=== PATIENT | female | born 1970 | race Caucasian/White ===

== ENCOUNTER 2020-11-07 11:30 | Inpatient (IN) | payer OTHER ==
[~2020-11-07] VITALS: Ht 154.9 cm; Wt 75.7 kg
--- NOTE | 2020-11-07 12:10 | NUR ---
PT BIB FAMILY MEMBER VIA POV. PER PT AND FAMILY MEMBER SHE HAS BEEN HAVING FEVERS AND COUGHS. PT WITH HISTORY OF CML. PT WAS RECENTLY ADMITTED AND DISCHARGED FROM [facility] D[facility]T [facility] PER FAMILY. PT RESTING IN [facility], MONITORING IN PLACE, NADN AT THIS TIME, WCTM. PT ROOM AIR SAT 76%, PT SATTING 94% 4L NC. PER PT SHE IS NOT ON OXYGEN AT BASELINE.
[2020-11-07] MEDS ORDERED: SODIUM CHLORIDE FLUSH 10ML SYR IVF ONE (13:00)
[2020-11-07] MEDS ORDERED: ACETAMINOPHEN 325 MG TABLET PO ONE (13:00)
[2020-11-07] MEDS ORDERED: ACETAMINOPHEN 500 MG TABLET ONE (13:05)
--- NOTE | 2020-11-07 13:22 | NUR ---
ASSUMED CARE OF PATIENT. REPORT GIVEN FROM TANISHA OCHOA. BOTH BLOOD CULTURES DRAWN. PT HAS BEEN UPDATED BY DR LEE.
[2020-11-07] MEDS ORDERED: OXYC20TA42 PO (13:36)
[2020-11-07] MEDS ORDERED: GABAPENTIN PO (13:37)
[2020-11-07 13:51] LABS: MEAN CORPUSCULAR HEMOGLOBIN 29.1 pg (27.0-34.8); MEAN CORPUSCULAR HGB CONC 33.6 g/dL (32.4-35.8); MEAN PLATELET VOLUME 7.8 fL (7.4-10.4); PLATELET COUNT 105 x10^3/uL (130-400); RED BLOOD COUNT 3.25 x10^6/uL (3.82-5.3); RED CELL DISTRIBUTION WIDTH 16.8 % (9.6-15.2)
[2020-11-07] MEDS ORDERED: PROC10TA78 PO (13:51)
[2020-11-07] MEDS ORDERED: ONDA4TAB7 PO (13:51)
[2020-11-07] MEDS ORDERED: OMEP40CA8 PO (13:52)
[2020-11-07] MEDS ORDERED: OXYCODONE PO (13:52)
[2020-11-07] MEDS ORDERED: TRAZ50TA66 PO (13:53)
[2020-11-07] MEDS ORDERED: LOSA25TA2 PO (13:53)
[2020-11-07] MEDS ORDERED: TIZA4TAB2 PO (13:53)
[2020-11-07] MEDS ORDERED: PONATINIB PO (13:54)
--- NOTE | 2020-11-07 13:55 | NUR ---
PT RESTING IN ROOM. VS STABLE. DELIVERY MANAGER ON. NSR NOTED. CALL LIGHT IN PLACE. WILL CONTINUE TO MONITOR.
[2020-11-07 13:59] LABS: ALBUMIN 2.4 g/dL (3.4-5.0); ANION GAP 11 mmol/L (5-15); CALCIUM 7.7 mg/dL (8.5-10.1); CHLORIDE 111 mmol/L (98-107)
[2020-11-07] MEDS ORDERED: SODIUM CHLORIDE 0.9% 1,000ML IVBOLUS ONE (14:00)
[2020-11-07 14:04] LABS: RAPID INFLUENZA A Negative (Negative); RAPID INFLUENZA B Negative (Negative)
[2020-11-07 14:04] LABS: ALANINE AMINOTRANSFERASE 15 U/L (12-78); ALKALINE PHOSPHATASE 93 U/L (45-117); BILIRUBIN,TOTAL 0.7 mg/dL (0.2-1.0); CREATININE 1.31 mg/dL (0.55-1.02); TOTAL PROTEIN 6.4 g/dL (6.4-8.2)
[2020-11-07 14:07] LABS: TROPONIN I 0.257 ng/mL (0.000-0.045)
[2020-11-07] MEDS ORDERED: ASPIRIN 81 MG TABLET CHEW ONE (14:18)
--- NOTE | 2020-11-07 14:24 | NUR ---
PHARMACY SLIP SENT FOR ABX
[2020-11-07] MEDS ORDERED: ASPIRIN 81 MG TABLET CHEW PO ONE (14:30)
[2020-11-07] MEDS ORDERED: CEFEPIME 1 GM in DEXTROSE 5% 50 ML IVPB ONE (14:30)
[2020-11-07] MEDS ORDERED: VANCOMYCIN PER PHARMACY MC ONE (14:30)
[2020-11-07] MEDS ORDERED: KETOROLAC 30 MG/1 ML IVPush ONE (14:30)
--- NOTE | 2020-11-07 14:35 | NUR ---
BOTH BLOOD CULTURES ROGER BEFORE ABX GIVEN
[2020-11-07] MEDS ORDERED: KETOROLAC 30 MG/1 ML ONE (14:38)
[2020-11-07 14:45] LABS: BANDS%(MANUAL) 15 % (0-7); EOS#(MANUAL) 0.06 x10^3/uL (0.0-0.4); EOS% (MANUAL) 1 % (1-7); LYMPH#(MANUAL) 0.66 x10^3/uL (1-3.4); LYMPHS% (MANUAL) 11 % (22-44); MONOS% (MANUAL) 5 % (2-9); REACTIVE LYMPHS # (MANUAL) 0.12 x10^3/uL (0-0); REACTIVE LYMPHS % (MANUAL) 2 % (0-0); SEG#(MANUAL) 3.96 x10^3/uL (1.8-6.8); SEGS% (MANUAL) 66 % (42-75)
[2020-11-07 14:47] LABS: <PLATELET ESTIMATE> DECREASED; <PLT MORPHOLOGY> NORMAL PLT MORPH; ANISOCYTOSIS 1+; OVALOCYTES 1+
--- NOTE | 2020-11-07 14:49 | NUR ---
PT RESTING IN ROOM. VS STABLE. ETCHER MACHINE ON. CALL LIGHT IN PLACE. WILL CONTINUE TO MONITOR.
[2020-11-07] MEDS ORDERED: VANCOMYCIN 1,800 MG in SODIUM CHLORIDE 0.9% 250 ML IV ONE (15:00)
[2020-11-07] MEDS ORDERED: CEFEPIME 1 GM in DEXTROSE 5% 100 ML IVPB ONE (15:00)
[2020-11-07] MEDS ORDERED: hydrALAzine 20 MG/ML, 1ML IVPush PRN (16:00)
[2020-11-07] MEDS ORDERED: THIAMINE 100MG TABLET PO ONE (16:00)
[2020-11-07] MEDS ORDERED: MELATONIN 5 MG TABLET PO PRN (16:00)
[2020-11-07] MEDS ORDERED: ONDANSETRON ODT 4 MG PO PRN (16:00)
[2020-11-07] MEDS ORDERED: ENALAPRILAT 1.25 MG/ML, 2ML IVPush PRN (16:00)
[2020-11-07] MEDS ORDERED: ONDANSETRON 2MG/ML, 2ML IVPush PRN (16:00)
[2020-11-07] MEDS ORDERED: KETOROLAC 30 MG/1 ML IV PRN (16:00)
[2020-11-07] MEDS ORDERED: ACETAMINOPHEN 325 MG TABLET PO PRN (16:00)
[2020-11-07] MEDS ORDERED: REMDESIVIR 200 MG in SODIUM CHLORIDE 0.9% 250 ML IVPB ONE (16:00)
[2020-11-07] MEDS ORDERED: PHARMACOKINETIC CONSULTATION MC ONE (16:30)
[2020-11-07] MEDS ORDERED: PHARMACOKINETIC MONITORING MC PRN (16:30)
[2020-11-07] MEDS ORDERED: VANCOMYCIN PER PHARMACY MC PRN (16:30)
[2020-11-07] MEDS: PANTOPRAZOLE 20MG TABLET PO SCH (17:30)
[2020-11-07] MEDS: ASCORBIC ACID 500 MG TABLET PO SCH (17:31)
[2020-11-07] MEDS ORDERED: ALBUTEROL SULFATE 2.5 MG/3 ML NPPB PRN (19:30)
[2020-11-07 20:13] VITALS: BP 118/74
[2020-11-07] MEDS: OXYcodone IR 5MG TABLET PO PRN (20:21)
[2020-11-07] MEDS: TRAZODONE 50MG TABLET PO SCH (20:21)
[2020-11-07] MEDS: CEFEPIME 1 GM in DEXTROSE 5% 50 ML IV SCH (23:26)
[2020-11-08] MEDS: OXYcodone IR 5MG TABLET PO PRN ×5 (00:26→19:56)
[2020-11-08 00:27] VITALS: BP 116/78
[2020-11-08] MEDS: GUAIFENESIN/DM 200-20MG, 10ML UDC PO PRN ×4 (00:44→20:00)
[2020-11-08] MEDS: PANTOPRAZOLE 20MG TABLET PO SCH ×2 (05:28→17:22)
[2020-11-08 05:29] LABS: BASOPHILS % (AUTO) 0 % (0-1); EOSINOPHILS % (AUTO) 1 % (1-7); LYMPHOCYTES % (AUTO) 15 % (22-44); MEAN CORPUSCULAR HEMOGLOBIN 29.2 pg (27.0-34.8); MEAN CORPUSCULAR HGB CONC 33.5 g/dL (32.4-35.8); MEAN PLATELET VOLUME 8.7 fL (7.4-10.4); MONOCYTES % (AUTO) 7 % (2-9); NEUTROPHILS % (AUTO) 77 % (42-75); PLATELET COUNT 105 x10^3/uL (130-400); RED BLOOD COUNT 2.97 x10^6/uL (3.82-5.3); RED CELL DISTRIBUTION WIDTH 16.4 % (9.6-15.2)
[2020-11-08 05:37] LABS: ALBUMIN 2.3 g/dL (3.4-5.0); ANION GAP 7 mmol/L (5-15); CALCIUM 7.8 mg/dL (8.5-10.1); CHLORIDE 111 mmol/L (98-107)
[2020-11-08 05:42] LABS: ALANINE AMINOTRANSFERASE 14 U/L (12-78); ALKALINE PHOSPHATASE 96 U/L (45-117); BILIRUBIN,TOTAL 0.5 mg/dL (0.2-1.0); CREATININE 0.92 mg/dL (0.55-1.02); TOTAL PROTEIN 6.4 g/dL (6.4-8.2)
[2020-11-08] MEDS: CEFEPIME 1 GM in DEXTROSE 5% 50 ML IV SCH ×3 (06:33→23:36)
[2020-11-08 08:00] VITALS: BP 136/87
[2020-11-08] MEDS: ASCORBIC ACID 500 MG TABLET PO SCH ×2 (08:30→17:22)
[2020-11-08] MEDS: DEXAMETHASONE 4 MG/ML, 1ML IVPush SCH (08:31)
[2020-11-08] MEDS: ZINC SULFATE 220 MG CAPSULE PO SCH (08:31)
[2020-11-08] MEDS: CHOLECALCIFEROL 1,000 UNIT TABLET PO SCH (08:31)
[2020-11-08] MEDS: LOSARTAN 25MG TABLET PO SCH (08:31)
[2020-11-08 14:00] VITALS: BP 151/80
[2020-11-08] MEDS ORDERED: VANCOMYCIN 1,400 MG in SODIUM CHLORIDE 0.9% 250 ML IV SCH (16:00)
[2020-11-08] MEDS ORDERED: REMDESIVIR 100 MG in SODIUM CHLORIDE 0.9% 250 ML IVPB SCH (16:00)
[2020-11-08] MEDS: VANCOMYCIN 1,500 MG in SODIUM CHLORIDE 0.9% 250 ML IV SCH (16:39)
[2020-11-08 20:03] VITALS: BP 122/72
[2020-11-08 20:06] VITALS: BP 143/88
[2020-11-08] MEDS: TRAZODONE 50MG TABLET PO SCH (20:59)
[2020-11-09] MEDS: OXYcodone IR 5MG TABLET PO PRN ×6 (00:05→23:55)
[2020-11-09 00:06] VITALS: BP 155/89
[2020-11-09] MEDS: GUAIFENESIN/DM 200-20MG, 10ML UDC PO PRN (05:46)
[2020-11-09] MEDS: PANTOPRAZOLE 20MG TABLET PO SCH ×2 (05:47→16:07)
[2020-11-09] MEDS: CEFEPIME 1 GM in DEXTROSE 5% 50 ML IV SCH ×3 (06:38→22:47)
[2020-11-09 07:17] VITALS: BP 151/90
[2020-11-09] MEDS ORDERED: POTASSIUM CHLORIDE 20 MEQ TAB.ER.PRT PO ONE (09:30)
[2020-11-09] MEDS: CHOLECALCIFEROL 1,000 UNIT TABLET PO SCH (10:11)
[2020-11-09] MEDS: ASCORBIC ACID 500 MG TABLET PO SCH ×2 (10:11→16:07)
[2020-11-09] MEDS: LOSARTAN 25MG TABLET PO SCH (10:12)
[2020-11-09] MEDS: ZINC SULFATE 220 MG CAPSULE PO SCH (10:12)
[2020-11-09] MEDS: DEXAMETHASONE 4 MG/ML, 1ML IVPush SCH (10:12)
[2020-11-09] MEDS: VANCOMYCIN 1,500 MG in SODIUM CHLORIDE 0.9% 250 ML IV SCH (10:47)
[2020-11-09] MEDS ORDERED: OMNIPAQUE 350 MG/ML, 100ML BOTTLE ONE (13:00)
[2020-11-09 15:42] VITALS: BP 170/111
[2020-11-09] MEDS ORDERED: DIPHENHYDRAMINE 50 MG/ML, 1ML IVPush ONE (17:00)
[2020-11-09 17:16] VITALS: BP 135/81
[2020-11-09 19:44] VITALS: BP 149/89
[2020-11-09] MEDS: TRAZODONE 50MG TABLET PO SCH (21:11)
[2020-11-10 01:45] VITALS: BP 145/87
[2020-11-10] MEDS: OXYcodone IR 5MG TABLET PO PRN ×5 (04:16→23:06)
[2020-11-10] MEDS: PANTOPRAZOLE 20MG TABLET PO SCH ×2 (04:16→17:27)
[2020-11-10] MEDS: VANCOMYCIN 1,500 MG in SODIUM CHLORIDE 0.9% 250 ML IV SCH (04:17)
[2020-11-10 04:34] LABS: ALANINE AMINOTRANSFERASE 12 U/L (12-78); ALBUMIN 2.3 g/dL (3.4-5.0); ANION GAP 6 mmol/L (5-15); CALCIUM 8.3 mg/dL (8.5-10.1); CHLORIDE 115 mmol/L (98-107); CREATININE 0.54 mg/dL (0.55-1.02)
[2020-11-10 04:36] LABS: ALKALINE PHOSPHATASE 82 U/L (45-117); BILIRUBIN,TOTAL 0.3 mg/dL (0.2-1.0); TOTAL PROTEIN 6.4 g/dL (6.4-8.2); VANCOMYCIN,TROUGH 10.3 mcg/mL (5.0-10.0)
[2020-11-10 05:15] LABS: MEAN CORPUSCULAR HEMOGLOBIN 28.9 pg (27.0-34.8); MEAN CORPUSCULAR HGB CONC 33.4 g/dL (32.4-35.8); MEAN PLATELET VOLUME 8.2 fL (7.4-10.4); PLATELET COUNT 82 x10^3/uL (130-400); RED BLOOD COUNT 2.89 x10^6/uL (3.82-5.3); RED CELL DISTRIBUTION WIDTH 16.3 % (9.6-15.2)
[2020-11-10 06:13] LABS: SEG#(MANUAL) 0.88 x10^3/uL (1.8-6.8); SEGS% (MANUAL) 49 % (42-75)
[2020-11-10 06:14] LABS: BAND#(MANUAL) 0.07 x10^3/uL; BANDS%(MANUAL) 4 % (0-7); LYMPH#(MANUAL) 0.68 x10^3/uL (1-3.4); LYMPHS% (MANUAL) 38 % (22-44); MONOS#(MANUAL) 0.14 x10^3/uL (0.3-2.7); MONOS% (MANUAL) 8 % (2-9); MYELOCYTES# (MANUAL) 0.02 x10^3/uL (0-0); MYELOCYTES% (MANUAL) 1 % (0-0)
[2020-11-10 06:15] LABS: ANISOCYTOSIS 1+; OVALOCYTES 1+; POLYCHROMASIA 1+
[2020-11-10 06:18] LABS: <PLATELET ESTIMATE> DECREASED; <PLT MORPHOLOGY> NORMAL PLT MORPH
[2020-11-10 07:13] LABS: BASOPHILS % (AUTO) 0 % (0-1); EOSINOPHILS % (AUTO) 0 % (1-7); LYMPHOCYTES % (AUTO) 35 % (22-44); MEAN CORPUSCULAR HEMOGLOBIN 28.6 pg (27.0-34.8); MEAN CORPUSCULAR HGB CONC 33.3 g/dL (32.4-35.8); MEAN PLATELET VOLUME 7.6 fL (7.4-10.4); MONOCYTES % (AUTO) 12 % (2-9); NEUTROPHILS % (AUTO) 53 % (42-75); PLATELET COUNT 83 x10^3/uL (130-400); RED BLOOD COUNT 2.78 x10^6/uL (3.82-5.3)
[2020-11-10] MEDS: CEFEPIME 1 GM in DEXTROSE 5% 50 ML IV SCH ×2 (07:19→14:53)
[2020-11-10 07:26] VITALS: BP 134/85
[2020-11-10] MEDS: CHOLECALCIFEROL 1,000 UNIT TABLET PO SCH (08:31)
[2020-11-10] MEDS: ASCORBIC ACID 500 MG TABLET PO SCH ×2 (08:31→17:26)
[2020-11-10] MEDS: ZINC SULFATE 220 MG CAPSULE PO SCH (08:31)
[2020-11-10] MEDS: LOSARTAN 25MG TABLET PO SCH (08:31)
[2020-11-10] MEDS: GUAIFENESIN/DM 200-20MG, 10ML UDC PO PRN ×2 (08:32→20:47)
[2020-11-10] MEDS: DEXAMETHASONE 4 MG/ML, 1ML IVPush SCH (08:32)
[2020-11-10 13:15] VITALS: BP 144/83
[2020-11-10 19:04] VITALS: BP 166/98
[2020-11-10] MEDS: TRAZODONE 50MG TABLET PO SCH (21:18)
[2020-11-10] MEDS ORDERED: VANCOMYCIN 1,700 MG in SODIUM CHLORIDE 0.9% 250 ML IV SCH (22:30)
[2020-11-10] MEDS: DIPHENHYDRAMINE 25 MG CAPSULE PO PRN (22:33)
[2020-11-11] MEDS: CEFEPIME 1 GM in DEXTROSE 5% 50 ML IV SCH ×3 (00:10→16:49)
[2020-11-11 00:19] VITALS: BP 176/99
[2020-11-11] MEDS: OXYcodone IR 5MG TABLET PO PRN ×5 (03:08→21:06)
[2020-11-11] MEDS: GUAIFENESIN/DM 200-20MG, 10ML UDC PO PRN ×2 (03:11→12:38)
[2020-11-11] MEDS: PANTOPRAZOLE 20MG TABLET PO SCH ×2 (04:56→16:49)
[2020-11-11 05:48] LABS: ALBUMIN 2.5 g/dL (3.4-5.0); ANION GAP 6 mmol/L (5-15); CHLORIDE 111 mmol/L (98-107)
[2020-11-11 05:51] LABS: ALANINE AMINOTRANSFERASE 12 U/L (12-78); ALKALINE PHOSPHATASE 76 U/L (45-117); BILIRUBIN,TOTAL 0.3 mg/dL (0.2-1.0); CREATININE 0.51 mg/dL (0.55-1.02); TOTAL PROTEIN 6.3 g/dL (6.4-8.2)
[2020-11-11 07:01] LABS: BASOPHILS % (AUTO) 0 % (0-1); EOSINOPHILS % (AUTO) 0 % (1-7); LYMPHOCYTES % (AUTO) 35 % (22-44); MEAN CORPUSCULAR HEMOGLOBIN 29.2 pg (27.0-34.8); MEAN CORPUSCULAR HGB CONC 34.1 g/dL (32.4-35.8); MEAN PLATELET VOLUME 8.2 fL (7.4-10.4); MONOCYTES % (AUTO) 12 % (2-9); NEUTROPHILS % (AUTO) 53 % (42-75); PLATELET COUNT 91 x10^3/uL (130-400); RED BLOOD COUNT 2.82 x10^6/uL (3.82-5.3); RED CELL DISTRIBUTION WIDTH 16.2 % (9.6-15.2)
[2020-11-11] MEDS: ZINC SULFATE 220 MG CAPSULE PO SCH (08:02)
[2020-11-11] MEDS: CHOLECALCIFEROL 1,000 UNIT TABLET PO SCH (08:02)
[2020-11-11] MEDS: DIPHENHYDRAMINE 25 MG CAPSULE PO PRN (08:02)
[2020-11-11] MEDS: DEXAMETHASONE 4 MG/ML, 1ML IVPush SCH (08:02)
[2020-11-11] MEDS: LOSARTAN 25MG TABLET PO SCH (08:02)
[2020-11-11] MEDS: ASCORBIC ACID 500 MG TABLET PO SCH ×2 (08:02→16:49)
[2020-11-11 08:05] VITALS: BP 146/89
[2020-11-11 10:05] LABS: ANISOCYTOSIS 1+; LYMPHS% (MANUAL) 36 % (22-44); MONOS% (MANUAL) 12 % (2-9); SEGS% (MANUAL) 52 % (42-75)
[2020-11-11 10:06] LABS: <PLATELET ESTIMATE> DECREASED; <PLT MORPHOLOGY> NORMAL PLT MORPH
[2020-11-11 13:23] VITALS: BP 152/99
[2020-11-11] MEDS: BENZONATATE 100 MG CAPSULE PO SCH ×2 (16:49→21:05)
[2020-11-11 18:45] VITALS: BP 165/96
[2020-11-11 19:52] VITALS: BP 171/109
[2020-11-11] MEDS: DOXYCYCLINE 100MG TABLET PO SCH (21:05)
[2020-11-11] MEDS: TRAZODONE 50MG TABLET PO SCH (23:03)
[2020-11-12] MEDS: DIPHENHYDRAMINE 25 MG CAPSULE PO PRN ×2 (00:10→07:47)
[2020-11-12 00:11] VITALS: BP 168/102
[2020-11-12] MEDS: CEFEPIME 1 GM in DEXTROSE 5% 50 ML IV SCH ×2 (00:58→07:46)
[2020-11-12] MEDS: OXYcodone IR 5MG TABLET PO PRN ×3 (04:40→13:26)
[2020-11-12] MEDS: PANTOPRAZOLE 20MG TABLET PO SCH (04:40)
[2020-11-12 07:20] VITALS: BP 166/96
[2020-11-12] MEDS: LOSARTAN 25MG TABLET PO SCH (07:47)
[2020-11-12] MEDS: BENZONATATE 100 MG CAPSULE PO SCH (07:47)
[2020-11-12] MEDS: CHOLECALCIFEROL 1,000 UNIT TABLET PO SCH (07:47)
[2020-11-12] MEDS: ZINC SULFATE 220 MG CAPSULE PO SCH (07:47)
[2020-11-12] MEDS: ASCORBIC ACID 500 MG TABLET PO SCH (07:47)
[2020-11-12] MEDS: DOXYCYCLINE 100MG TABLET PO SCH (07:47)
[2020-11-12] MEDS ORDERED: AMLODIPINE 5 MG TABLET PO SCH (09:00)
[2020-11-12] MEDS ORDERED: BENZ-17 PO (11:13)
[2020-11-12] MEDS ORDERED: CEFD300C37 PO (11:13)
[2020-11-12] MEDS ORDERED: DOXY100T PO (11:13)
[2020-11-12] MEDS ORDERED: AMLO-150 PO (11:13)
[2020-11-12 12:20] VITALS: BP 128/83
== END 2020-11-12 13:48 | disposition home or self-care (01) | DRG 871 ==
LOC: SUATTDRO 15:00 → ED 15:24 → 5SO 15:44 → 4NW 11-08 14:42 → 3N 11-09 17:25
PROVIDERS: ADMIT Hospitalist; ATTEND Hospitalist
DX: A41.9 Sepsis, unspecified organism (principal); J96.01 Acute respiratory failure with hypoxia; J18.1 Lobar pneumonia, unspecified organism; M32.9 Systemic lupus erythematosus, unspecified; G89.29 Other chronic pain; Z85.6 Personal history of leukemia; Z20.822 Contact with and (suspected) exposure to COVID-19; Z88.5 Allergy status to narcotic agent; Z88.0 Allergy status to penicillin; Z88.8 Allergy status to other drugs, medicaments and biological substances
CPT/HCPCS: 36415; 71045; 71275; 80053; 80202; 83605; 83615; 83735; 84145; 84484; 85025; 85379; 87040; 87070; 87205; 87400; 93005; 96360; 96361; G0378; J0692; J1100; J1885; J2405; J3370; Q9967; U0005; J0360; J1200; J7030; J7050; Q0163; U0003